=== PATIENT | female | born 1930 | race Caucasian/White ===

== ENCOUNTER 2019-11-16 13:21 | Inpatient (IN) | payer MEDICARE, OTHER ==
[~2019-11-16] VITALS: Ht 157.5 cm; Wt 49.9 kg
--- NOTE | 2019-11-16 13:30 | NUR ---
PT BIB [facility] C/O CHEST DISCOMFORT, SOB, AND HIGH BP. PT IS A/O X 4 ,SPEAKS IN COMPLETE SENTENCES, CLEAR SPEECH. PT STATES NO N/V .
[2019-11-16 13:50] LABS: BASOPHILS % (AUTO) 0.8 % (0.0-2.0); EOSINOPHILS # (AUTO) 0.2 K/uL (0.0-0.7); HEMATOCRIT 33.3 % (31.2-41.9); HEMOGLOBIN 11.2 g/dL (10.9-14.3); LYMPHOCYTES # (AUTO) 1.2 K/uL (20.0-40.0); MEAN CORPUSCULAR HEMOGLOBIN 30.6 uug (24.7-32.8); MEAN CORPUSCULAR HGB CONC 34 g/dL (32.3-35.6); MEAN CORPUSCULAR VOLUME 91.1 fL (75.5-95.3); MONOCYTES # (AUTO) 0.6 K/uL (2.0-10.0); MONOCYTES % (AUTO) 12.4 % (0.0-11.0); NEUTROPHILS # (AUTO) 2.8 K/uL (1.8-8.9); NEUTROPHILS % (AUTO) 56.8 % (38.5-71.5); PLATELET COUNT (AUTO) 252 K/uL (179-408); RED BLOOD CELL COUNT(AUTO) 3.66 MIL/uL (3.63-4.92)
[2019-11-16 13:58] LABS: CREATININE 0.8 mg/dL (0.6-1.3)
[2019-11-16 14:03] LABS: BILIRUBIN,DIRECT 0.1 mg/dL (0.0-0.2); BILIRUBIN,TOTAL 0.3 mg/dL (0.2-1.0); TOTAL PROTEIN, SERUM 7.1 g/dL (6.4-8.2)
[2019-11-16] MEDS ORDERED: ASPIRIN 81 MG TAB.CHEW PO ONE (14:15)
[2019-11-16] MEDS ORDERED: NITROGLYCERIN OINT 1 GM PACKET TP ONE ×2 (14:15→14:27)
[2019-11-16] MEDS ORDERED: ASPIRIN 81 MG TAB.CHEW ONE (14:27)
[2019-11-16] MEDS ORDERED: NITROGLYCERIN 0.4 MG/TAB BOTTLE SL PRN (14:45)
[2019-11-16] MEDS ORDERED: MAGNESIUM HYDROXIDE 30 ML LIQUID UDC PO PRN (14:45)
[2019-11-16] MEDS ORDERED: ONDANSETRON 4 MG/2 ML VIAL IV PRN (14:45)
[2019-11-16] MEDS ORDERED: MORPHINE SULFATE 2 MG/1 ML DISP.SYRIN IV PRN (14:45)
[2019-11-16] MEDS ORDERED: ACETAMINOPHEN 325 MG TABLET PO PRN (14:45)
[2019-11-16] MEDS ORDERED: HYDROCODONE/APAP 5-325MG TABLET PO PRN (14:45)
[2019-11-16] MEDS ORDERED: AZITHROMYCIN IV 500 MG in IV DEXTROSE 5% 250 ML IV ONE (15:00)
[2019-11-16] MEDS ORDERED: CEFTRIAXONE 1 G in IV DEXTROSE 5% 50 ML IV ONE (15:00)
[2019-11-16] MEDS ORDERED: SWABABLE VALVE TRANSFER SET EA MC ONE (15:14)
[2019-11-16] MEDS ORDERED: IOHEXOL 350 100 ML INFUS..BTL ONE (15:14)
[2019-11-16] MEDS ORDERED: IV NORMAL SALINE 250 ML IV ONE (15:14)
--- NOTE | 2019-11-16 15:26 | NUR ---
PT TRANSPORTED TO CT IN STABLE CONDITION.
[2019-11-16] MEDS ORDERED: FUROSEMIDE 40 MG/4 ML VIAL IV ONE (16:15)
[2019-11-16] MEDS ORDERED: AZITHROMYCIN 500MG/ D5W 250ML IVPB **ER PYXIS ONLY IV ONE (16:17)
[2019-11-16] MEDS ORDERED: CEFTRIAXONE /D5W 50ML IVPB **ER PYXIS IV ONE (16:17)
--- NOTE | 2019-11-16 16:34 | NUR ---
Report given to JAKE Lobo
[2019-11-16 17:00] VITALS: BP 197/78
--- NOTE | 2019-11-16 17:00 | NUR ---
RECEIVED REPORT FROM TIMMY THE ER NURSE. PATIENT ARRIVED TO UNIT. AOX4. DENIES CHEST PAIN OR SOB AT THIS TIME. BP TAKEN AND BP 197/78 WITH HR 123. WILL GIVE BP MEDS ORDERED. SAFETY AND FALL PRECAUTIONS IN PLACE. ORIENTED TO ROOM. CALL LIGHT IN REACH. BED IN LOW POSITION AND LOCKED. WILL CONTINUE TO MONITOR.
--- NOTE | 2019-11-16 17:00 | NUR ---
Patient transported to TELE in stable condition.
[2019-11-16] MEDS: LOSARTAN POTASSIUM 50 MG TABLET PO SCH (17:30)
[2019-11-16] MEDS: AMLODIPINE 5 MG TABLET PO SCH (17:30)
[2019-11-16 18:40] VITALS: BP 145/75
--- NOTE | 2019-11-16 19:37 | NUR ---
patient aox4. bp medications given as ordered and bp went down since admit to unit. patient continues to deny pain or sob. safety and fall prevention in place. bed in low and locked position. call light in reach. will report to shift mgr nurse.
[2019-11-16] MEDS ORDERED: ATORVASTATIN 40 MG TABLET PO SCH (21:00)
[2019-11-16] MEDS ORDERED: ZOLPIDEM 5 MG TABLET PO SCH (21:00)
[2019-11-16] MEDS ORDERED: MIRTAZAPINE 15 MG TABLET PO SCH (21:00)
[2019-11-16] MEDS ORDERED: GABAPENTIN 300 MG CAPSULE PO SCH (21:00)
[2019-11-16] MEDS: CARVEDILOL 6.25 MG TABLET PO SCH (21:29)
[2019-11-17 00:29] VITALS: BP 92/41
[2019-11-17 06:25] LABS: BASOPHILS % (AUTO) 0.9 % (0.0-2.0); EOSINOPHILS # (AUTO) 0.2 K/uL (0.0-0.7); HEMATOCRIT 31.4 % (31.2-41.9); HEMOGLOBIN 10.6 g/dL (10.9-14.3); LYMPHOCYTES # (AUTO) 0.9 K/uL (20.0-40.0); LYMPHOCYTES % (AUTO) 17.3 % (20.5-51.5); MEAN CORPUSCULAR HEMOGLOBIN 30.7 uug (24.7-32.8); MEAN CORPUSCULAR HGB CONC 34 g/dL (32.3-35.6); MEAN CORPUSCULAR VOLUME 90.5 fL (75.5-95.3); MONOCYTES # (AUTO) 0.7 K/uL (2.0-10.0); MONOCYTES % (AUTO) 12.2 % (0.0-11.0); NEUTROPHILS # (AUTO) 3.6 K/uL (1.8-8.9); NEUTROPHILS % (AUTO) 65.6 % (38.5-71.5); PLATELET COUNT (AUTO) 240 K/uL (179-408); RED BLOOD CELL COUNT(AUTO) 3.47 MIL/uL (3.63-4.92); WHITE BLOOD COUNT (AUTO) 5.4 K/uL (3.8-11.8)
[2019-11-17 06:37] LABS: CREATININE 1.1 mg/dL (0.6-1.3); MAGNESIUM 2.1 mg/dL (1.8-2.4); PHOSPHOROUS 5.1 mg/dL (2.5-4.9); POTASSIUM 3.4 mmol/L (3.5-5.1)
[2019-11-17] MEDS ORDERED: LEVOTHYROXINE SODIUM 88 MCG TABLET PO SCH (07:00)
[2019-11-17] MEDS ORDERED: PANTOPRAZOLE SODIUM 40 MG TABLET.DR PO SCH (07:00)
[2019-11-17] MEDS: CARVEDILOL 6.25 MG TABLET PO SCH (08:00)
--- NOTE | 2019-11-17 08:00 | NUR ---
received pt. resting in bed alert oriented x3 turkish speaking able to speak some uzbek and make needs known. pt. denies pain/ discomfort. pt. denies SOB/ difficulty breathing. Safety measures in place. call light within reach. will continue to monitor pt.
[2019-11-17] MEDS: LOSARTAN POTASSIUM 50 MG TABLET PO SCH (09:00)
[2019-11-17] MEDS: AMLODIPINE 5 MG TABLET PO SCH (09:00)
[2019-11-17] MEDS ORDERED: ASPIRIN 81 MG TAB.CHEW PO SCH (09:00)
[2019-11-17] MEDS ORDERED: DULOXETINE 60 MG CAPSULE.DR PO SCH (09:00)
[2019-11-17 09:58] VITALS: BP 100/40
--- NOTE | 2019-11-17 10:00 | NUR ---
Checked pt. blood pressure and BP 99/35 HR 56 did not give AM BP meds. Rechecked BP after an hour and BP still low in [facility] 106/38 HR 69. Did not give AM BP meds. Informed Dr. Nilson Pierre on decreased BP. no new orders.
[2019-11-17 11:00] VITALS: BP 97/37
[2019-11-17] MEDS ORDERED: POTASSIUM CHLORIDE 20 MEQ POWDER PACKET GT ONE (13:30)
[2019-11-17 16:00] VITALS: BP 108/52
--- NOTE | 2019-11-17 16:52 | NUR ---
Pt. discharged home after cleared by analytical consultant. Pt. BP stable and reported to analytical consultant. Pt. able to ambulate around unit without dizziness or SOB. IV removed. ID band removed. Pt. signed all discharge paperwork. Belongings list signed and all belongings with pt. Pt. wheeled downstairs by MATHEW.
== END 2019-11-17 16:50 | disposition home or self-care (01) | DRG 305 ==
LOC: ER 13:21 → TELE3 16:35
DX: I16.9 Hypertensive crisis, unspecified (principal); E87.1 Hypo-osmolality and hyponatremia; J98.11 Atelectasis; G30.9 Alzheimer's disease, unspecified; F02.80 Dementia in other diseases classified elsewhere, unspecified severity, without behavioral disturbance, psychotic disturbance, mood disturbance, and anxiety; E03.9 Hypothyroidism, unspecified; E78.5 Hyperlipidemia, unspecified; K21.9 Gastro-esophageal reflux disease without esophagitis; M48.061 Spinal stenosis, lumbar region without neurogenic claudication; I70.0 Atherosclerosis of aorta; I87.2 Venous insufficiency (chronic) (peripheral); F41.9 Anxiety disorder, unspecified; F32.9 Major depressive disorder, single episode, unspecified; E86.1 Hypovolemia; I35.8 Other nonrheumatic aortic valve disorders; Z79.890 Hormone replacement therapy; N28.1 Cyst of kidney, acquired; I11.9 Hypertensive heart disease without heart failure
CPT/HCPCS: 36415; 70030-TC; 71045; 71275; 83605; 83735; 84100; 84443; 85025; 87040; 93005; 93307; A4663; G0378; J0456; J0696; J1940; J2270; J7030; J7050; Q9967